=== PATIENT | female | born 1995 | race Hispanic/Latino ===

== ENCOUNTER 2022-08-25 21:49 | Emergency (ER) | payer SELFPAY ==
[2022-08-25] MEDS ORDERED: KETOROLAC 30 MG/ML INJ ONE (22:50)
[2022-08-25] MEDS ORDERED: NA CHLORIDE 0.9% 1,000 ML ONE (22:50)
[2022-08-25] MEDS ORDERED: METOCLOPRAMIDE 10 MG/2mL INJ ONE (22:50)
[2022-08-25] MEDS ORDERED: DIPHENHYDRAMINE 50 MG/ML VIAL ONE (22:50)
--- NOTE | 2022-08-26 00:26 | ER ---
Nurse's Notes [facility] Name: Marichuy Bermudez Age: 26 yrs Sex: Female : 1995 Arrival Date: 08/25/2022 Time: 21:54 Bed 8 Private MD: Diagnosis: Headache;Tension-type headache Presentation: 08/25 22:05 Chief complaint: Patient states: headache across the top of head that started this kr3 morning. Has hx of migraines but this feels different. Coronavirus screen: Vaccine status: Patient reports being unvaccinated. Client denies travel out of the [place] in the last 14 days. Ebola Screen: Patient denies travel to an Ebola-affected area in the 21 days before illness onset. Initial Sepsis Screen: Does the patient meet any 2 criteria? No. Patient's initial sepsis screen is negative. Does the patient have a suspected source of infection? No. Patient's initial sepsis screen is negative. Risk Assessment: Do you want to hurt yourself or someone else? Patient reports no desire to harm self or others. Onset of symptoms was August 25, 2022. 22:05 Method Of Arrival: Ambulatory kr3 22:05 Acuity: ELISE 4 kr3 Triage Assessment: 22:08 Headache History: The patient has had previous headaches and this one is different than kr3 previous episodes. General: Appears in no apparent distress. uncomfortable, Behavior is calm, cooperative, appropriate for age. Pain: Pain currently is 8 out of 10 on a pain scale. Pain began gradually, Also complains of no other associated symptoms. Neuro: Reports feeling hot. Historical: - Allergies: 22:07 No Known Allergies; kr3 - PMHx: 22:07 None; kr3 - PSHx: 22:07 Appendectomy; kr3 - Immunization history:: Adult Immunizations not up to date. - Social history:: Smoking status: Patient reports the use of cigarette tobacco products, smokes one-half pack cigarettes per day, Reported history of juuling and/or vaping. Screenin:58 Abuse screen: Denies threats or abuse. Denies injuries from another. Nutritional tw5 screening: No deficits noted. Tuberculosis screening: No symptoms or risk factors identified. Fall Risk None identified. Assessment: 22:58 General: Appears in no apparent distress. Behavior is calm, cooperative. Pain: tw5 Complains of pain in forehead, right presybeterian, left presybeterian, left parietal area and right parietal area Pain currently is 10 out of 10 on a pain scale. Neuro: Level of Consciousness is awake, alert, obeys commands, Oriented to person, place, time, situation, [employer] are equal bilaterally Moves all extremities. Gait is steady, Speech is normal. Respiratory: No deficits noted. Vital Signs: 22:05 BP 124 / 74; Pulse 58; Resp 16; Temp 98.6(O); Pulse Ox 98% on R/A; Weight 79.83 kg; kr3 Height 5 ft. 5 in. (165.10 cm); Pain 8/10; 22:05 Body Mass Index 29.29 (79.83 kg, 165.10 cm) kr3 ED Course: 21:54 Patient arrived in ED. ja2 22:03 Jhony Burris MD is Attending Physician. kdr 22:07 Triage completed. kr3 22:10 Patient placed in an exam room, on a stretcher. kr3 22:11 Alvarez Vargas RN is Primary Nurse. as6 22:58 Patient has correct armband on for positive identification. Placed in gown. Bed in low tw5 position. Door closed. Noise minimized. Moved to private room. Warm blanket given. Verbal reassurance given. 22:58 Inserted saline lock: 20 gauge in left antecubital area, using aseptic technique. tw5 23:05 No provider procedures requiring assistance completed. tw5 08/26 00:35 IV discontinued, intact, bleeding controlled, No redness/swelling at site. Pressure as6 dressing applied. Administered Medications: 08/25 23:00 Drug: NS 0.9% 1000 ml Route: IV; Rate: 1 bolus; Site: left antecubital; tw5 08/26 00:36 Follow up: Response: No adverse reaction; IV Status: Completed infusion; IV Intake: as6 1000ml 08/25 23:00 Drug: Ketorolac 15 mg Route: IVP; Site: left antecubital; tw5 08/26 00:36 Follow up: Response: No adverse reaction as6 08/25 23:02 Drug: Benadryl (diphenhydrAMINE) 25 mg Route: IVP; Site: left antecubital; tw5 08/26 00:36 Follow up: Response: No adverse reaction as6 08/25 23:02 Drug: Reglan (metoCLOPramide) 10 mg Route: IVP; Site: left antecubital; tw5 08/26 00:35 Follow up: Response: No adverse reaction as6 Medication: 08/25 22:58 VIS not applicable for this client. tw5 Intake: 08/26 00:36 IV: 1000ml; Total: 1000ml. as6 Outcome: 00:25 Discharge ordered by . radha 00:35 Discharged to home ambulatory. as6 00:35 Condition: stable 00:35 Discharge instructions given to patient, Instructed on discharge instructions, follow up and referral plans. Demonstrated understanding of instructions, follow-up care. 00:36 Patient left the ED. as6 Signatures: Jhony Burris MD MD kdr Alexander, Jessica ja2 Wood, Tiffany tw5 Alvarez Vargas, RN RN as6 Treva Ashley RN RN kr3
--- NOTE | 2022-08-26 00:26 | EDPHYS ---
Physician Documentation [facility] Name: Marichuy Bermudez Age: 26 yrs Sex: Female : 1995 Arrival Date: 08/25/2022 Time: 21:54 Bed 8 Private MD: ED Physician Jhony Burris HPI: 08/25 22:45 This 26 yrs old Female presents to ER via Ambulatory with complaints of kdr Headache, Neck Pain, <24hrs Old. 22:45 The patient complains of pain to the top of head, left side of head and right side of kdr head. The patient describes the headache as aching, unrelenting. Onset: The symptoms/episode began/occurred today. Associated signs and symptoms: The patient has no apparent associated signs or symptoms. Severity of symptoms: At its worst the pain was moderate, in the emergency department the pain is unchanged. Headache History: The patient has had previous headaches and this one is similar to previous episodes. The symptoms are alleviated by nothing. the symptoms are aggravated by nothing. The patient has not experienced similar symptoms in the past. The patient has not recently seen a physician. Historical: - Allergies: 22:07 No Known Allergies; kr3 - PMHx: 22:07 None; kr3 - PSHx: 22:07 Appendectomy; kr3 - Immunization history:: Adult Immunizations not up to date. - Social history:: Smoking status: Patient reports the use of cigarette tobacco products, smokes one-half pack cigarettes per day, Reported history of juuling and/or vaping. ROS: 22:45 Constitutional: Negative for fever, chills, and weight loss, Eyes: Negative for injury, kdr pain, redness, and discharge, ENT: Negative for injury, pain, and discharge, Neck: Negative for injury, pain, and swelling, Cardiovascular: Negative for chest pain, palpitations, and edema, Respiratory: Negative for shortness of breath, cough, wheezing, and pleuritic chest pain, Abdomen/GI: Negative for abdominal pain, nausea, vomiting, diarrhea, and constipation, Back: Negative for injury and pain, : Negative for injury, bleeding, discharge, and swelling, MS/Extremity: Negative for injury and deformity, Skin: Negative for injury, rash, and discoloration, Psych: Negative for depression, anxiety, suicide ideation, homicidal ideation, and hallucinations, Allergy/Immunology: Negative for hives, rash, and allergies, Endocrine: Negative for neck swelling, polydipsia, polyuria, polyphagia, and marked weight changes, Hematologic/Lymphatic: Negative for swollen nodes, abnormal bleeding, and unusual bruising. 22:45 Neuro: Positive for headache, Negative for altered mental status, dizziness, gait disturbance, hearing loss, loss of consciousness, numbness, seizure activity, speech changes, syncope, near syncope, visual changes, weakness. Exam: 22:45 Constitutional: This is a well developed, well nourished patient who is awake, alert, kdr and in no acute distress. Head/Face: Normocephalic, atraumatic. Eyes: Pupils equal round and reactive to light, extra-ocular motions intact. Lids and lashes normal. Conjunctiva and sclera are non-icteric and not injected. Cornea within normal limits. Periorbital areas with no swelling, redness, or edema. Neck: Trachea midline, no thyromegaly or masses palpated, and no cervical lymphadenopathy. Supple, full range of motion without nuchal rigidity, or vertebral point tenderness. No Meningismus. Chest/axilla: Normal chest wall appearance and motion. Nontender with no deformity. No lesions are appreciated. Cardiovascular: Regular rate and rhythm with a normal S1 and S2. No gallops, murmurs, or rubs. Normal PMI, no JVD. No pulse deficits. Respiratory: Lungs have equal breath sounds bilaterally, clear to auscultation and percussion. No rales, rhonchi or wheezes noted. No increased work of breathing, no retractions or nasal flaring. Abdomen/GI: Soft, non-tender, with normal bowel sounds. No distension or tympany. No guarding or rebound. No evidence of tenderness throughout. MS/ Extremity: Pulses equal, no cyanosis. Neurovascular intact. Full, normal range of motion. Neuro: Awake and alert, GCS 15, oriented to person, place, time, and situation. Cranial nerves II-XII grossly intact. Motor strength 5/5 in all extremities. Sensory grossly intact. Cerebellar exam normal. Normal gait. Psych: Awake, alert, with orientation to person, place and time. Behavior, mood, and affect are within normal limits. Vital Signs: 22:05 BP 124 / 74; Pulse 58; Resp 16; Temp 98.6(O); Pulse Ox 98% on R/A; Weight 79.83 kg; kr3 Height 5 ft. 5 in. (165.10 cm); Pain 8/10; 22:05 Body Mass Index 29.29 (79.83 kg, 165.10 cm) kr3 MDM: 22:45 Data reviewed: vital signs, nurses notes, lab test result(s), radiologic studies. kdr Counseling: I had a detailed discussion with the patient and/or guardian regarding: the historical points, exam findings, and any diagnostic results supporting the discharge/admit diagnosis, lab results, radiology results. 08/26 00:25 Patient medically screened. kdr 08/25 22:48 Order name: IV Saline Lock; Complete Time: 23:00 Administered Medications: 08/25 23:00 Drug: NS 0.9% 1000 ml Route: IV; Rate: 1 bolus; Site: left antecubital; tw5 08/26 00:36 Follow up: Response: No adverse reaction; IV Status: Completed infusion; IV Intake: as6 1000ml 08/25 23:00 Drug: Ketorolac 15 mg Route: IVP; Site: left antecubital; tw5 08/26 00:36 Follow up: Response: No adverse reaction as6 08/25 23:02 Drug: Benadryl (diphenhydrAMINE) 25 mg Route: IVP; Site: left antecubital; tw5 08/26 00:36 Follow up: Response: No adverse reaction as6 08/25 23:02 Drug: Reglan (metoCLOPramide) 10 mg Route: IVP; Site: left antecubital; tw5 08/26 00:35 Follow up: Response: No adverse reaction as6 Disposition Summary: 08/26/22 00:25 Discharge Ordered Location: Home kdr Problem: new kdr Symptoms: are resolved kdr Condition: Stable kdr Diagnosis - Headache kdr - Tension-type headache kdr Followup: kdr - With: Private Physician - When: 2 - 3 days - Reason: If symptoms return, Further diagnostic work-up, Recheck today's complaints, Continuance of care, Re-evaluation by your physician Discharge Instructions: - Discharge Summary Sheet kdr - General Headache Without Cause kdr - Tension Headache, Adult, [id number] kdr Forms: - Medication Reconciliation Form kdr - Thank You Letter kdr Signatures: Jhony Burris MD MD kdr Ju Mai tw5 Treva Ashley RN RN kr3 Alvarez Vargas RN as6
[2022-08-26 01:10] VITALS: BP 124/74; TEMP 98.6; O2SAT 98
== END 2022-08-26 00:36 | disposition home or self-care (01) ==
LOC: ER 21:49
DX: G44.209 Tension-type headache, unspecified, not intractable (principal); F17.210 Nicotine dependence, cigarettes, uncomplicated
CPT/HCPCS: 96361; 96374; 96375; 99283; J1200; J2765; J7030